=== PATIENT | female | born 1980 | race Caucasian/White ===

== ENCOUNTER 2016-10-02 06:52 | Day surgery (SDC) | payer OTHER ==
[~2016-10-02] VITALS: Ht 165.1 cm; Wt 113.4 kg
[~2016-10-02 06:52] MED LIST: ADVIL PM1 TABLET PO; ALIGN4 MG PO; CRESTOR20 MG PO; DEPO-PROVER150 MG/ML IM; EXCEDRIN MIGRA1 EAC3 PO; LO-DOSE ASPIRIN81 M1 PO; LOPRESSOR50 MG PO; METFORMIN HCL500 M4 PO; NEURONTIN300 MG PO; OMEPRAZOLE40 M1 PO; POTASSIUM-9999 MG PO; TRULICITY0.75 MG/0. SC; TYLENOL WITH C1 EACH PO; ZESTRIL20 MG PO; ZOLOFT100 MG PO
[2016-10-02 07:19] LABS: POINT-OF-CARE METER ID UU14174212
== END 2016-10-02 08:37 | disposition home or self-care (01) ==
LOC: PAIN 06:52 → SDC 07:30 → PAIN 08:37
PROVIDERS: Anesthesiology Pain Medicine
PROC: 3E0S33Z Introduction of Anti-inflammatory into Epidural Space, Percutaneous Approach (ICD-10-PCS; principal; 2016-10-02)
DX: M54.12 Radiculopathy, cervical region (principal); F41.9 Anxiety disorder, unspecified; M50.20 Other cervical disc displacement, unspecified cervical region; M25.511 Pain in right shoulder; F17.200 Nicotine dependence, unspecified, uncomplicated; E11.9 Type 2 diabetes mellitus without complications; I10 Essential (primary) hypertension; E78.5 Hyperlipidemia, unspecified; K21.9 Gastro-esophageal reflux disease without esophagitis; K58.9 Irritable bowel syndrome, unspecified; F32.9 Major depressive disorder, single episode, unspecified
CPT/HCPCS: 82948; J1030; J2250; J3010

== ENCOUNTER 2017-02-16 07:26 | Day surgery (SDC) | payer OTHER ==
[~2017-02-16] VITALS: Ht 165.1 cm; Wt 113.4 kg
[2017-02-16 08:06] LABS: POINT-OF-CARE METER ID UU13113694; POINT-OF-CARE USER ID AHSRSCSLC11
== END 2017-02-16 09:25 | disposition home or self-care (01) ==
LOC: PAIN 07:26 → SDC 08:15 → PAIN 08:15
PROVIDERS: Anesthesiology Pain Medicine
DX: M47.22 Other spondylosis with radiculopathy, cervical region (principal); M50.11 Cervical disc disorder with radiculopathy, high cervical region; M54.5 Low back pain; M25.511 Pain in right shoulder; I10 Essential (primary) hypertension; E11.9 Type 2 diabetes mellitus without complications; F41.8 Other specified anxiety disorders; E78.5 Hyperlipidemia, unspecified; E66.9 Obesity, unspecified; Z68.41 Body mass index [BMI] 40.0-44.9, adult; G47.33 Obstructive sleep apnea (adult) (pediatric); K21.9 Gastro-esophageal reflux disease without esophagitis; Z79.82 Long term (current) use of aspirin; Z79.84 Long term (current) use of oral hypoglycemic drugs; Z88.0 Allergy status to penicillin; F17.210 Nicotine dependence, cigarettes, uncomplicated
CPT/HCPCS: 82948; J1030; J2250; J3010; S0020

== ENCOUNTER 2017-02-23 06:36 | Day surgery (SDC) | payer OTHER ==
[~2017-02-23] VITALS: Ht 165.1 cm; Wt 113.4 kg
[2017-02-23 08:05] LABS: POINT-OF-CARE METER ID UU13113694
== END 2017-02-23 08:42 | disposition home or self-care (01) ==
LOC: PAIN 06:36 → SDC 08:15 → PAIN 08:15
PROVIDERS: Anesthesiology Pain Medicine
DX: M47.22 Other spondylosis with radiculopathy, cervical region (principal); M50.122 Cervical disc disorder at C5-C6 level with radiculopathy; M54.5 Low back pain; M25.511 Pain in right shoulder; I10 Essential (primary) hypertension; E78.5 Hyperlipidemia, unspecified; E11.9 Type 2 diabetes mellitus without complications; F41.8 Other specified anxiety disorders; G47.33 Obstructive sleep apnea (adult) (pediatric); F17.210 Nicotine dependence, cigarettes, uncomplicated; Z88.0 Allergy status to penicillin; Z79.82 Long term (current) use of aspirin; Z79.84 Long term (current) use of oral hypoglycemic drugs
CPT/HCPCS: 82948; J1030; J2250; J3010; S0020

== ENCOUNTER 2017-05-25 08:02 | Day surgery (SDC) | payer OTHER ==
[~2017-05-25] VITALS: Ht 165.1 cm; Wt 113.4 kg
[2017-05-25 08:37] LABS: POINT-OF-CARE METER ID UU14174212
== END 2017-05-25 10:00 | disposition home or self-care (01) ==
LOC: PAIN 08:02 → SDC 09:30 → PAIN 10:00
PROVIDERS: Anesthesiology Pain Medicine
PROC: 01513ZZ Destruction of Cervical Nerve, Percutaneous Approach (ICD-10-PCS; principal; 2017-05-25)
DX: M47.22 Other spondylosis with radiculopathy, cervical region (principal); F17.200 Nicotine dependence, unspecified, uncomplicated; M25.511 Pain in right shoulder; E11.65 Type 2 diabetes mellitus with hyperglycemia; E66.9 Obesity, unspecified; Z68.41 Body mass index [BMI] 40.0-44.9, adult; I10 Essential (primary) hypertension; E78.5 Hyperlipidemia, unspecified; G47.33 Obstructive sleep apnea (adult) (pediatric); K21.9 Gastro-esophageal reflux disease without esophagitis; Z79.84 Long term (current) use of oral hypoglycemic drugs; Z88.0 Allergy status to penicillin
CPT/HCPCS: 82948; J1030; J1885; J2250; J3010; S0020